=== PATIENT | male | born 1990 | race African-American/Black ===

== ENCOUNTER 2016-10-27 22:26 | Emergency (ER) | payer BC ==
[2016-10-27 22:53] VITALS: RESP 18
--- NOTE | 2016-10-27 23:57 | ED ---
General Adult HPI - General Chief complaint: Fall Stated complaint: Back Pain Time Seen by Provider: 10/27/16 23:13 Source: patient, RN notes reviewed, old records reviewed Mode of arrival: ambulatory Limitations: no limitations - History of Present Illness Initial comments: This is a 26-year-old male the ER for evaluation. Patient associated a esters trip and fall. Patient fell down 2 steps landing on tailbone landing on but, pain with sitting, no problems with walking. No other complaints or pain. Patient did not fall and hit his head. No chest penetrance breath or bowel pain. Follow. Mechanical - Related Data Home Medications Medication Instructions Recorded Confirmed Ibuprofen [Motrin] 800 mg PO Q6HR PRN 10/27/16 10/27/16 Allergies Allergy/AdvReac Type Severity Reaction Status Date / Time Penicillins Allergy Unknown Verified 10/27/16 23:08 Review of Systems ROS Statement: Those systems with pertinent positive or pertinent negative responses have been documented in the HPI. ROS Other: All systems not noted in ROS Statement are negative. Past Medical History Past Medical History: No Reported History History of Any Multi-Drug Resistant Organisms: MRSA Date of last positivie culture/infection: 2011 MDRO Source:: right arm Past Surgical History: No Surgical Hx Reported Past Psychological History: No Psychological Hx Reported Smoking Status: Former smoker Past Alcohol Use History: None Reported Past Drug Use History: None Reported General Exam Limitations: no limitations General appearance: alert, in no apparent distress Head exam: Present: atraumatic, normocephalic, normal inspection Eye exam: Present: normal appearance, PERRL, EOMI. Absent: scleral icterus, conjunctival injection, periorbital swelling ENT exam: Present: normal exam, mucous membranes moist Neck exam: Present: normal inspection. Absent: tenderness, meningismus, lymphadenopathy Respiratory exam: Present: normal lung sounds bilaterally. Absent: respiratory distress, wheezes, rales, rhonchi, stridor Cardiovascular Exam: Present: regular rate, normal rhythm, normal heart sounds. Absent: systolic murmur, diastolic murmur, rubs, gallop, clicks GI/Abdominal exam: Present: soft, normal bowel sounds. Absent: distended, tenderness, guarding, rebound, rigid Extremities exam: Present: normal inspection, full ROM, normal capillary refill. Absent: tenderness, pedal edema, joint swelling, calf tenderness Back exam: Present: normal inspection, other (Tenderness to coccyx area) Neurological exam: Present: alert, oriented X3, CN II-XII intact Psychiatric exam: Present: normal affect, normal mood Skin exam: Present: warm, dry, intact, normal color. Absent: rash Course Vital Signs 10/27/16 22:50 Temperature 98.2 F Pulse Rate 72 Respiratory 18 Rate Blood Pressure 129/79 O2 Sat by Pulse 96 Oximetry - Reevaluation(s) Reevaluation #1: 10/27/16 23:56 Patient is in no acute distress, able to ambulate no neurological issues Medical Decision Making - Medical Decision Making 26 LDR status post fall, patient with Dr. feliz coccygeal bruise, patient can be discharged home - Radiology Data Radiology results: report reviewed (X-ray pelvis and sacrum coccyx is negative for fracture), image reviewed Disposition Clinical Impression: Fall, Coccyx contusion Disposition: HOME SELF-CARE Condition: Good Instructions: Coccyx Injury (ED) Referrals: None,Stated [Primary Care Provider] - 1-2 days
[2016-10-27] MEDS ORDERED: Acetaminophen-Codeine 300-30mg TAB PO STA (23:58)
[2016-10-28 00:11] VITALS: BP 122/74; PULSE 76; TEMP 97
--- NOTE | 2016-10-28 00:45 | XR ---
EXAMINATION TYPE: XR pelvis AP view DATE OF EXAM: 10/27/2016 11:42 PM CLINICAL HISTORY: Right-sided tailbone pain fall from 2 feet onto butt. TECHNIQUE: A single AP view of the pelvis is obtained. COMPARISON: None. FINDINGS: A small bone density is noted in the lateral superior aspect of left acetabulum most likely represent ing small ossicle or old trauma changes. There is no acute fracture/dislocation evident in the pelvis. The hip and sacroiliac joints appear symmetric and unremarkable. The overlying soft tissue appears unremarkable. IMPRESSION: There is no acute fracture or dislocation in the pelvis.
--- NOTE | 2016-10-28 00:47 | XR ---
EXAMINATION TYPE: XR sacrum coccyx DATE OF EXAM: 10/27/2016 11:42 PM COMPARISON: Pelvis x-ray 10/27/2016 HISTORY: Right-sided tailbone pain history of fall from 2 feet onto the butt. TECHNIQUE: 3 radiographs of sacrum and coccyx were obtained. FINDINGS: No definite acute fracture or dislocation is noted in the sacrum and coccyx. Soft tissues a ppear unremarkable. IMPRESSION: No definite acute fracture or dislocation is noted in the sacrum and coccyx.
== END 2016-10-28 00:10 | disposition home or self-care (01) ==
LOC: EC 22:26
DX: S30.0XXA Contusion of lower back and pelvis, initial encounter (principal); W10.9XXA Fall (on) (from) unspecified stairs and steps, initial encounter; Z88.0 Allergy status to penicillin; Z87.891 Personal history of nicotine dependence
CPT/HCPCS: 72170; 72220; 99284

== ENCOUNTER 2016-11-16 09:27 | Emergency (ER) | payer BC ==
--- NOTE | 2016-11-16 10:58 | ED ---
General Adult HPI - General Chief complaint: Headache Stated complaint: headache Time Seen by Provider: 11/16/16 10:00 Source: patient, RN notes reviewed Mode of arrival: ambulatory Limitations: no limitations - History of Present Illness Initial comments: This is a 26-year-old male who states she's been having intermittent headaches for the last 7 months. Patient states in the occipital region of her head. Patient states they normally come and go but Aleve and Tylenol don't normally help. Patient states this started on Tuesday and hasn't gone away yet and he came in to be evaluated for the first time. Patient states he has no numbness weakness per patient denies any nausea vomiting. Patient states he may be a little sensitive to light but not that bad. Patient denies any recent fever or chills or cough. Patient denies any abdominal pain.. Patient denies any chest pain difficulty breathing shortness of breath per patient denies any recent injury or trauma. 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 - Related Data Home Medications Medication Instructions Recorded Confirmed Ibuprofen [Motrin] 800 mg PO Q6HR PRN 10/27/16 11/16/16 Allergies Allergy/AdvReac Type Severity Reaction Status Date / Time Penicillins Allergy Unknown Verified 11/16/16 09:49 Review of Systems ROS Statement: Those systems with pertinent positive or pertinent negative responses have been documented in the HPI. ROS Other: All systems not noted in ROS Statement are negative. Past Medical History Past Medical History: No Reported History History of Any Multi-Drug Resistant Organisms: MRSA Date of last positivie culture/infection: 2011 MDRO Source:: right arm Past Surgical History: No Surgical Hx Reported Past Psychological History: No Psychological Hx Reported Smoking Status: Former smoker Past Alcohol Use History: None Reported Past Drug Use History: None Reported General Exam - General Exam Comments Initial Comments: GENERAL: Patient is well-developed and well-nourished. Patient is nontoxic and well- hydrated and is in mild distress. ENT: Neck is soft and supple. No significant lymphadenopathy is noted. Oropharynx is clear. Moist mucous membranes. Neck has full range of motion without eliciting any pain. EYES: The sclera were anicteric and conjunctiva were pink and moist. Extraocular movements were intact and pupils were equal round and reactive to light. Eyelids were unremarkable. PULMONARY: Unlabored respirations. Good breath sounds bilaterally. No audible rales rhonchi or wheezing was noted. CARDIOVASCULAR: There is a regular rate and rhythm without any murmurs gallops or rubs. ABDOMEN: Soft and nontender with normal bowel sounds. No palpable organomegaly was noted. There is no palpable pulsatile mass. SKIN: Skin is clear with no lesions or rashes and otherwise unremarkable. NEUROLOGIC: Patient is alert and oriented x3. Cranial nerves II through XII are grossly intact. Motor and sensory are also intact. Normal speech, volume and content. Symmetrical smile. Cerebellar exam grossly intact. MUSCULOSKELETAL: Normal extremities with adequate strength and full range of motion. No lower extremity swelling or edema. No calf tenderness. LYMPHATICS: No significant lymphadenopathy is noted PSYCHIATRIC: Normal psychiatric evaluation. Normal interpersonal interactions appears functionally intact in deals appropriately with others. No signs of depression. No signs of anxiety. No delusions. No hallucinations. Limitations: no limitations Course Vital Signs 11/16/16 09:38 Temperature 97.5 F L Pulse Rate 68 Respiratory 18 Rate Blood Pressure 133/82 O2 Sat by Pulse 98 Oximetry Medical Decision Making - Medical Decision Making CT shows no acute abnormality. Disposition Clinical Impression: Acute headache Disposition: HOME SELF-CARE Condition: Good Instructions: Acute Headache (ED) Additional Instructions: Patient should take Excedrin when necessary for headaches. If he continues to have these headaches follow-up with his primary medical care doctor or neurology. Referrals: None,Stated [Primary Care Provider] - 1-2 days Time of Disposition: 11:43
--- NOTE | 2016-11-16 11:23 | CT ---
EXAMINATION TYPE: CT brain wo con DATE OF EXAM: 11/16/2016 11:19 AM COMPARISON: NONE HISTORY: 26-year-old male with Headache TECHNIQUE: Examination was done in axial plane without intravenous contrast. Coronal and sagittal reconstructio ns performed. CT DLP: 995.50 mGycm Automated exposure control for dose reduction was used. FINDINGS: There is no evidence of acute intracranial hemorrhage, acute ischemic changes, mass, mass-effect, or extra-axial fluid collection. There is no effacement of cerebral sulci or basal subarachnoid cister ns. There is no hydrocephalus. There is no midline shift. Foote-white matter distinction is preserv ed. Paranasal sinuses and mastoid air cells are well pneumatized. Orbits and globes are intact. IMPRESSION: No acute intracranial abnormality seen.
[2016-11-16 12:00] VITALS: BP 164/75; PULSE 60; RESP 16; TEMP 97.1
== END 2016-11-16 11:59 | disposition home or self-care (01) ==
LOC: EC 09:27
DX: R51 Headache (principal); Z87.891 Personal history of nicotine dependence; Z88.0 Allergy status to penicillin
CPT/HCPCS: 70450; 99284

== ENCOUNTER 2017-03-14 02:45 | Emergency (ER) | payer BC ==
[2017-03-14 02:50] VITALS: BP 149/72; PULSE 72; RESP 16; TEMP 97.9
--- NOTE | 2017-03-14 02:57 | ED ---
Upper Extremity HPI - General Chief Complaint: Extremity Injury, Upper Stated Complaint: Hand injury Time Seen by Provider: 03/14/17 02:50 Source: patient, RN notes reviewed Mode of arrival: ambulatory Limitations: no limitations - History of Present Illness Initial Comments: 26-year-old male presents emergency Department with chief complaint of left hand pain. Patient states that he actually closely in a car door. Patient complains of mid hand pain. Patient states is worse when he makes a fist. Patient denies any lacerations or open wounds. Patient states that he has no wrist pain and no pain in the digits. Patient is right-hand dominant. Patient offers no complaints. - Related Data Home Medications Medication Instructions Recorded Confirmed Ibuprofen [Motrin] 200 mg PO Q6HR PRN 10/27/16 03/14/17 Previous Rx's Medication Instructions Recorded Ibuprofen [Motrin] 600 mg PO Q8HR PRN #30 tab 03/14/17 Allergies Allergy/AdvReac Type Severity Reaction Status Date / Time Penicillins Allergy Unknown Verified 03/14/17 02:49 Review of Systems ROS Statement: Those systems with pertinent positive or pertinent negative responses have been documented in the HPI. ROS Other: All systems not noted in ROS Statement are negative. Past Medical History Past Medical History: No Reported History History of Any Multi-Drug Resistant Organisms: MRSA Date of last positivie culture/infection: 2011 MDRO Source:: right arm Past Surgical History: No Surgical Hx Reported Past Psychological History: No Psychological Hx Reported Smoking Status: Former smoker Past Alcohol Use History: None Reported Past Drug Use History: None Reported General Exam Limitations: no limitations General appearance: alert, in no apparent distress Respiratory exam: Present: normal lung sounds bilaterally. Absent: respiratory distress, wheezes, rales, rhonchi, stridor Cardiovascular Exam: Present: regular rate, normal rhythm, normal heart sounds. Absent: systolic murmur, diastolic murmur, rubs, gallop, clicks Extremities exam: Present: other (Left hand there is tenderness across of third through fifth metacarpal minimal swelling no lacerations no abrasions digits are nontender wrist nontender full range of motion neurovascular intact radial pulses equal bilaterally) Skin exam: Present: warm, dry Course Vital Signs 03/14/17 02:46 Temperature 97.9 F Pulse Rate 72 Respiratory 16 Rate Blood Pressure 149/72 O2 Sat by Pulse 97 Oximetry Medical Decision Making - Medical Decision Making 26-year-old male present emergency from for left hand injury. Patient has no acute fracture. There is a foreign body metallic noted which is old as is no open wounds. Patient does not have any recollection of this. Patient will be discharged with ibuprofen return parameters were discussed. Disposition Clinical Impression: Contusion of left hand Disposition: HOME SELF-CARE Condition: Stable Instructions: Contusion in Adults (ED) Additional Instructions: Please return to the Emergency Department if symptoms worsen or any other concerns. Prescriptions: Ibuprofen [Motrin] 600 mg PO Q8HR PRN #30 tab PRN Reason: Pain Referrals: None,Stated [Primary Care Provider] - 1-2 days Time of Disposition: 03:05
--- NOTE | 2017-03-14 03:34 | XR ---
EXAM: XR Left Hand Complete, 3 or More Views CLINICAL HISTORY: left medial hand pain from getting slammed in car door, no prior injuries per pt, no prior shielded TECHNIQUE: Frontal, lateral and oblique views of the left hand. COMPARISON: No relevant prior studies available. FINDINGS: Bones/joints: Unremarkable. No acute fracture. No dislocation. Soft tissues: Unremarkable. No radiopaque foreign body. IMPRESSION: No fracture
== END 2017-03-14 03:12 | disposition home or self-care (01) ==
LOC: EC 02:45
DX: S60.222A Contusion of left hand, initial encounter (principal); Z87.891 Personal history of nicotine dependence; Z88.0 Allergy status to penicillin; W23.0XXA Caught, crushed, jammed, or pinched between moving objects, initial encounter
CPT/HCPCS: 99283

== ENCOUNTER 2017-04-05 17:29 | Emergency (ER) | payer BC ==
--- NOTE | 2017-04-05 17:39 | ED ---
Upper Extremity HPI - General Stated Complaint: L wrist injury Time Seen by Provider: 04/05/17 17:31 Source: patient, RN notes reviewed Limitations: no limitations - History of Present Illness Initial Comments: 26-year-old male presents emergency Department with chief complaint of left wrist pain. Patient states he felt a trampoline a few days ago. Patient states that he has pain with range of motion. He takes my from for no relief. Denies any paresthesias. Denies any pain proximal to the wrist no hand pain. Patient no head injury no LOC. - Related Data Home Medications Medication Instructions Recorded Confirmed Ibuprofen [Motrin] 200 mg PO Q6HR PRN 10/27/16 03/14/17 Previous Rx's Medication Instructions Recorded Ibuprofen [Motrin] 600 mg PO Q8HR PRN #30 tab 03/14/17 Allergies Allergy/AdvReac Type Severity Reaction Status Date / Time Penicillins Allergy Unknown Verified 04/05/17 17:40 Review of Systems ROS Statement: Those systems with pertinent positive or pertinent negative responses have been documented in the HPI. ROS Other: All systems not noted in ROS Statement are negative. Past Medical History Past Medical History: No Reported History History of Any Multi-Drug Resistant Organisms: MRSA Date of last positivie culture/infection: 2011 MDRO Source:: right arm Past Surgical History: No Surgical Hx Reported Past Psychological History: No Psychological Hx Reported Smoking Status: Former smoker Past Alcohol Use History: None Reported Past Drug Use History: None Reported General Exam General appearance: alert, in no apparent distress Respiratory exam: Present: normal lung sounds bilaterally. Absent: respiratory distress, wheezes, rales, rhonchi, stridor Cardiovascular Exam: Present: regular rate, normal rhythm, normal heart sounds. Absent: systolic murmur, diastolic murmur, rubs, gallop, clicks Extremities exam: Present: other (Left wrist there is some tenderness along the distal radius ulna does not is deformity full range of motion neurovascular intact) Back exam: Present: full ROM. Absent: tenderness Skin exam: Present: warm, dry, intact, normal color. Absent: rash Course Vital Signs 04/05/17 17:40 Temperature 98.0 F Pulse Rate 77 Respiratory 18 Rate Blood Pressure 139/77 O2 Sat by Pulse 96 Oximetry Medical Decision Making - Medical Decision Making 26-year-old male presented for left wrist injury. There is no acute fracture per radiology reading. Patiently discharges time return parameters discussed. Patient has had a foreign body in his hand previously noted. Disposition Clinical Impression: Left wrist sprain Disposition: HOME SELF-CARE Condition: Stable Instructions: Wrist Injury (ED) Additional Instructions: Please return to the Emergency Department if symptoms worsen or any other concerns. Referrals: None,Stated [Primary Care Provider] - 1-2 days Time of Disposition: 18:07
[2017-04-05 17:43] VITALS: BP 139/77; PULSE 77; RESP 18; TEMP 98
--- NOTE | 2017-04-05 18:09 | XR ---
EXAMINATION TYPE: XR wrist complete LT DATE OF EXAM: 04/05/2017 COMPARISON: NONE HISTORY: Pain TECHNIQUE: 3 views FINDINGS: I see no fracture nor dislocation. Joint spaces are normal. There is a BB metal foreign bod y between the distal fourth and fifth metacarpals. IMPRESSION: No fracture. BB foreign body. No change compared to hand exam of 03/14/2017.
== END 2017-04-05 18:11 | disposition home or self-care (01) ==
LOC: EC 17:29
DX: S63.502A Unspecified sprain of left wrist, initial encounter (principal); Z87.891 Personal history of nicotine dependence; Z88.0 Allergy status to penicillin; X58.XXXA Exposure to other specified factors, initial encounter
CPT/HCPCS: 99283

== ENCOUNTER 2017-05-24 01:27 | Emergency (ER) | payer BC ==
[2017-05-24 01:40] VITALS: BP 134/63; PULSE 74; RESP 18; TEMP 97.8
--- NOTE | 2017-05-24 01:44 | ED ---
Upper Extremity HPI - General Chief Complaint: Extremity Injury, Upper Stated Complaint: elbow injury Time Seen by Provider: 05/24/17 01:34 Source: patient Mode of arrival: ambulatory Limitations: no limitations - History of Present Illness Initial Comments: 27 yo male presents for fall and left elbow pain.Patient denies any recent fever , chills, shortness of breath, chest pain, back pain, abdominal pain, nausea vomiting, numbness or tingling, dysuria or hematuria, constipation or diarrhea, headaches or visual changes, or any other current symptoms. MD Complaint: Injury to:: left, elbow Onset/Timin -: days(s) Other Injuries: none Handedness: right Place: home Severity scale (1-10): 3 Improves With: immobilization, rest Worsens With: movement of extremity Context: fall Associated Symptoms: denies other symptoms Treatments Prior to Arrival: NSAIDS - Related Data Home Medications Medication Instructions Recorded Confirmed Ibuprofen [Motrin] 200 mg PO Q6HR PRN 10/27/16 03/14/17 Previous Rx's Medication Instructions Recorded Ibuprofen [Motrin] 600 mg PO Q8HR PRN #30 tab 03/14/17 Allergies Allergy/AdvReac Type Severity Reaction Status Date / Time Penicillins Allergy Unknown Verified 05/24/17 01:40 Review of Systems ROS Statement: Those systems with pertinent positive or pertinent negative responses have been documented in the HPI. ROS Other: All systems not noted in ROS Statement are negative. Past Medical History Past Medical History: No Reported History History of Any Multi-Drug Resistant Organisms: MRSA Date of last positivie culture/infection: 2011 MDRO Source:: right arm Past Surgical History: No Surgical Hx Reported Past Psychological History: No Psychological Hx Reported Smoking Status: Former smoker Past Alcohol Use History: None Reported Past Drug Use History: None Reported General Exam Limitations: no limitations General appearance: alert, in no apparent distress ENT exam: Present: normal exam, mucous membranes moist Neck exam: Present: normal inspection. Absent: tenderness, meningismus, lymphadenopathy Respiratory exam: Present: normal lung sounds bilaterally. Absent: respiratory distress, wheezes, rales, rhonchi, stridor Cardiovascular Exam: Present: regular rate, normal rhythm, normal heart sounds. Absent: systolic murmur, diastolic murmur, rubs, gallop, clicks Left Shoulder Exam: Present: normal inspection, full ROM. Absent: tenderness, swelling Upper Arm exam: Present: normal inspection, full ROM. Absent: tenderness, swelling Elbow exam: Present: normal inspection, full ROM, tenderness (Olecranon process) . Absent: swelling, abrasion, laceration, ecchymosis, deformity, crepitus, erythema, effusion, pain w/ pronation/supination, tenderness over radial head Forearm Wrist exam: Present: normal inspection, full ROM. Absent: tenderness, swelling Hand Wrist exam: Present: normal inspection, full ROM. Absent: tenderness, swelling Neuro motor exam: Present: wrist extension intact, thumb opposition intact, thumb IP flexion intact, thumb adduction intact, fingers 2-5 abduction intact Neurosensory exam: Present: radial nerve intact, ulnar nerve intact, median nerve intact Vascular: Present: normal capillary refill. Absent: vascular compromise Neurological exam: Present: alert, oriented X3 Psychiatric exam: Present: normal affect, normal mood Skin exam: Present: warm, dry, intact, normal color. Absent: rash Course Vital Signs 05/24/17 01:34 Temperature 97.8 F Pulse Rate 74 Respiratory 18 Rate Blood Pressure 134/63 O2 Sat by Pulse 97 Oximetry Medical Decision Making - Medical Decision Making 27-year-old male presents with what appears be a left elbow contusion. We discussed ice we discussed Motrin Tylenol for pain. We discussed return parameters all patient's questions. He stated the [facility] is here and plan. At this time we will be discharged home. - Radiology Data Radiology results: report reviewed, image reviewed Disposition Clinical Impression: Left elbow contusion Disposition: HOME SELF-CARE Condition: Stable Instructions: Contusion in Adults (ED) Additional Instructions: Please use medication as discussed. Please follow up with family doctor if symptoms have not improved over the next two days. Please return to the emergency room if your symptoms increase or worsen or for any other concerns. Referrals: Sherita Snell MD [STAFF PHYSICIAN] - 1-2 days Time of Disposition: 02:15
--- NOTE | 2017-05-24 02:14 | XR ---
EXAM: XR Left Elbow Complete, 3 or More Views CLINICAL HISTORY: Reason: Pain TECHNIQUE: Frontal, lateral and oblique views of the left elbow. COMPARISON: No relevant prior studies available. FINDINGS: Bones/joints: Unremarkable. No acute fracture. No dislocation. No joint effusion. Soft tissues: Unremarkable. IMPRESSION: No acute osseous abnormality of the left elbow.
== END 2017-05-24 02:20 | disposition home or self-care (01) ==
LOC: EC 01:27
DX: S50.02XA Contusion of left elbow, initial encounter (principal); Z87.891 Personal history of nicotine dependence; Z88.0 Allergy status to penicillin; W19.XXXA Unspecified fall, initial encounter; Y92.009 Unspecified place in unspecified non-institutional (private) residence as the place of occurrence of the external cause
CPT/HCPCS: 99283

== ENCOUNTER 2017-08-01 00:23 | Emergency (ER) | payer BC ==
[2017-08-01 00:38] VITALS: RESP 18
--- NOTE | 2017-08-01 01:17 | XR ---
EXAMINATION TYPE: XR ankle complete RT DATE OF EXAM: 08/01/2017 COMPARISON: NONE HISTORY: Pain after basketball TECHNIQUE: 3 views FINDINGS: There is a small Achilles calcaneal spur. Ankle mortise is anatomic. I see no fracture nor dislocation. IMPRESSION: Calcaneal spurring. No fracture.
--- NOTE | 2017-08-01 01:18 | XR ---
EXAMINATION TYPE: XR foot complete RT DATE OF EXAM: 08/01/2017 COMPARISON: NONE HISTORY: Pain after basketball TECHNIQUE: 3 views FINDINGS: Metatarsals are intact. I see no fracture nor dislocation. There is a small Achilles calcan eal spur. There are no erosions. IMPRESSION: No acute abnormality of the right foot.
--- NOTE | 2017-08-01 01:23 | ED ---
Lower Extremity Injury HPI - General Chief Complaint: Extremity Injury, Lower Stated Complaint: Ankle Injury Time Seen by Provider: 08/01/17 00:36 Source: patient, RN notes reviewed, old records reviewed Mode of arrival: ambulatory Limitations: no limitations - History of Present Illness Initial Comments: 27-year-old male presents emergency Department chief complaint of right ankle pain and swelling. He reports that 2 days ago he twisted his ankle while jumping. Patient states he landed on his ankle and now he has some pain over the lateral aspect and the lateral aspect of the dorsum of his foot. He reports that he's had some decrease in the swelling but is still but easily decided to be seen. Patient has no numbness or tingling down the foot or toes.Patient denies any recent fever, chills, shortness of breath, chest pain, back pain, abdominal pain, nausea vomiting, numbness or tingling, dysuria or hematuria, constipation or diarrhea, headaches or visual changes, or any other current symptoms - Related Data Home Medications Medication Instructions Recorded Confirmed Ibuprofen [Motrin] 200 mg PO Q6HR PRN 10/27/16 03/14/17 Previous Rx's Medication Instructions Recorded Ibuprofen [Motrin] 600 mg PO Q8HR PRN #30 tab 03/14/17 Naproxen 500 mg PO BID #20 tablet 08/01/17 Allergies Allergy/AdvReac Type Severity Reaction Status Date / Time Penicillins Allergy Unknown Verified 08/01/17 00:36 Review of Systems ROS Statement: Those systems with pertinent positive or pertinent negative responses have been documented in the HPI. ROS Other: All systems not noted in ROS Statement are negative. Past Medical History Past Medical History: No Reported History History of Any Multi-Drug Resistant Organisms: MRSA Date of last positivie culture/infection: 2011 MDRO Source:: right arm Past Surgical History: No Surgical Hx Reported Past Psychological History: No Psychological Hx Reported Smoking Status: Former smoker Past Alcohol Use History: None Reported Past Drug Use History: None Reported General Exam - General Exam Comments Initial Comments: Well-appearing 27-year-old male. No distress. Limitations: no limitations General appearance: alert, in no apparent distress Head exam: Present: atraumatic, normocephalic, normal inspection Eye exam: Present: normal appearance, PERRL, EOMI. Absent: scleral icterus, conjunctival injection, periorbital swelling ENT exam: Present: normal exam, mucous membranes moist, TM's normal bilaterally Neck exam: Present: normal inspection. Absent: tenderness, meningismus, lymphadenopathy Respiratory exam: Present: normal lung sounds bilaterally. Absent: respiratory distress, wheezes, rales, rhonchi, stridor Cardiovascular Exam: Present: regular rate, normal rhythm, normal heart sounds. Absent: systolic murmur, diastolic murmur, rubs, gallop, clicks GI/Abdominal exam: Present: soft, normal bowel sounds. Absent: distended, tenderness, guarding, rebound, rigid Extremities exam: Present: normal inspection, full ROM, normal capillary refill. Absent: tenderness, pedal edema, joint swelling, calf tenderness Right Knee exam: Present: normal inspection, full ROM Lower Leg exam: Present: normal inspection, full ROM Ankle exam: Present: normal inspection, full ROM, tenderness (lateral malleoulus tenderness. ) Foot/Toe exam: Present: normal inspection, full ROM Neurovascular tendon exam: Present: no vascular compromise Back exam: Present: normal inspection Neurological exam: Present: alert, oriented X3, CN II-XII intact Psychiatric exam: Present: normal affect, normal mood Skin exam: Present: warm, dry, intact, normal color. Absent: rash Course Vital Signs 08/01/17 08/01/17 00:36 02:07 Temperature 97.3 F L 98.1 F Pulse Rate 60 65 Respiratory 18 18 Rate Blood Pressure 138/88 149/96 O2 Sat by Pulse 97 98 Oximetry Procedures - Orthopedic Splinting/Casting Injury #1 Side: right Lower Extremity Injury Location: ankle Lower Extremity Immobilizer: Abdoul wrap Additional Comments: Patient is neurovascularly intact. Medical Decision Making - Medical Decision Making 17-year-old male chief complaint of right ankle pain after jumping and landing on his ankle in twisting it 2 days ago. He is able to bear weight on it. There is some tenderness over the lateral aspect of the medial malleolus. Patient has full range of motion of the toes and ankle. It is time for and x- rays were obtained and are negative for any acute process. Patient was given an Abdoul wrap splint. Discussed using the compression of the Abdoul wrap as well as resting and icing and elevating the foot. Patient will be discharged with a prescription for anti-inflammatory medicine and advised to follow-up with orthopedic if symptoms continue to persist. Patient be diagnosed with a right ankle sprain. - Radiology Data Radiology results: report reviewed Ankle and foot x-ray are negative for any acute process. Disposition Clinical Impression: Right ankle sprain Disposition: HOME SELF-CARE Condition: Good Instructions: Ankle Sprain (ED), Foot Sprain (ED) Additional Instructions: , Ice, elevate extremity. Wear the Abdoul wrap. Follow up with orthopedic if symptoms continue persist. Patient advised to follow-up with primary care provider. Return to emergency department if any alarming signs or symptoms occur. Prescriptions: Naproxen 500 mg PO BID #20 tablet Referrals: None,Stated [Primary Care Provider] - 1-2 days Roque Mar MD [STAFF PHYSICIAN] - 1-2 days Time of Disposition: 01:20
[2017-08-01 02:08] VITALS: BP 149/96; PULSE 65; TEMP 98.1
== END 2017-08-01 02:08 | disposition home or self-care (01) ==
LOC: EC 00:23
DX: S93.401A Sprain of unspecified ligament of right ankle, initial encounter (principal); Z86.14 Personal history of Methicillin resistant Staphylococcus aureus infection; Z87.891 Personal history of nicotine dependence; Z88.0 Allergy status to penicillin; X50.1XXA Overexertion from prolonged static or awkward postures, initial encounter; Y93.39 Activity, other involving climbing, rappelling and jumping off
CPT/HCPCS: 99284

== ENCOUNTER 2017-11-01 03:12 | Emergency (ER) | payer BC ==
[2017-11-01 03:31] VITALS: BP 135/86; PULSE 74; RESP 16; TEMP 98.8
[2017-11-01] MEDS ORDERED: IBUPROFEN 400 MG TAB PO STA (03:57)
--- NOTE | 2017-11-01 03:58 | ED ---
Fall HPI - General Chief Complaint: Fall Stated Complaint: fall Time Seen by Provider: 11/01/17 03:46 Source: patient Mode of arrival: ambulatory - History of Present Illness Initial Comments: This patient is a 27-year-old man who presents to be evaluated after he had a head injury. The patient states that this morning between 8 and 9 AM he fell and hit the left side of the back of his head against car bumper. The patient did not have loss of consciousness. He did not experience any bleeding. He did not have any neurologic symptoms. He has continued to have some headache throughout the day, resulting in him taking [id number] Tylenol around 2 hours ago. He states this did make it a bit better area the patient states that when he described was going onto his mother she recommended that he go to the emergency department to see if he had a concussion the patient states he has not had confusion, change in hearing, vision, speech or swallowing. He has not had any weakness or numbness of the extremities. He is not having difficulty with walking or dizziness. He has had some nausea but no vomiting. Patient denies other injuries, including no neck or back, chest or abdomen pain. MD Complaint: fall Onset/Timin -: hour(s) Fall From: standing Fall Witnessed: no Place Fall Occurred: street Loss of Consciousness: none Prolonged Down Time?: no Symptoms Prior to Fall: none Location: head Severity: mild Quality: dull, aching Context: tripped/slipped (On ice) Associated Symptoms: headache - Related Data Home Medications Medication Instructions Recorded Confirmed Ibuprofen [Motrin] 200 mg PO Q6HR PRN 10/27/16 08/22/17 Previous Rx's Medication Instructions Recorded Ibuprofen [Motrin] 600 mg PO Q8HR PRN #30 tab 03/14/17 Naproxen 500 mg PO BID #20 tablet 08/01/17 Allergies Allergy/AdvReac Type Severity Reaction Status Date / Time Penicillins Allergy Unknown Verified 11/01/17 03:31 Review of Systems ROS Statement: Those systems with pertinent positive or pertinent negative responses have been documented in the HPI. ROS Other: All systems not noted in ROS Statement are negative. Constitutional: Denies: fever, chills, weakness Eyes: Denies: eye pain, vision change ENT: Denies: ear pain, hearing loss, epistaxis Respiratory: Denies: dyspnea Cardiovascular: Denies: chest pain, syncope Gastrointestinal: Denies: abdominal pain, vomiting Genitourinary: Denies: dysuria Musculoskeletal: Denies: back pain Neurological: Reports: headache. Denies: weakness, numbness, paresthesias Past Medical History Past Medical History: No Reported History History of Any Multi-Drug Resistant Organisms: MRSA Date of last positivie culture/infection: 2011 MDRO Source:: right arm Past Surgical History: No Surgical Hx Reported Past Psychological History: No Psychological Hx Reported Smoking Status: Former smoker Past Alcohol Use History: None Reported Past Drug Use History: None Reported General Exam Limitations: no limitations General appearance: alert, in no apparent distress Head exam: Present: normocephalic, other (There is a small contusion to the left of the occiput. No bony tenderness or deformity.) Eye exam: Present: normal appearance, PERRL, EOMI. Absent: scleral icterus, conjunctival injection, nystagmus ENT exam: Present: normal oropharynx, mucous membranes moist, TM's normal bilaterally, normal external ear exam Neck exam: Present: normal inspection, full ROM. Absent: tenderness Extremities exam: Present: normal inspection, full ROM, other (Right forearm and wrist). Absent: tenderness Back exam: Absent: CVA tenderness (R), CVA tenderness (L), vertebral tenderness Neurological exam: Present: alert, oriented X3, CN II-XII intact, normal gait. Absent: motor sensory deficit Skin exam: Present: warm, dry, intact, normal color. Absent: rash Course Vital Signs 11/01/17 03:26 Temperature 98.8 F Pulse Rate 74 Respiratory 16 Rate Blood Pressure 135/86 O2 Sat by Pulse 99 Oximetry Medical Decision Making - Medical Decision Making The patient is 19-year-old man who presents with mild headache and some some intermittent nausea since head injury this morning. He has normal neurologic exam and no indication of fracture on the exam. He does have a fiance who he lives with and will be able to monitor for him for any change in his status. Using shared decision making, we have decided that hold off on a CT for now and should any change in his status develop, should he experience any worsening at all, should his symptoms not resolve, that may change things. He is going to follow with the neurologist if he is not back to normal in the morning. he will return here if there is any worsening. Disposition Clinical Impression: Fall, Closed head injury Disposition: HOME SELF-CARE Condition: Good Instructions: Head Injury (ED) Referrals: Max Murphy MD [Primary Care Provider] - 1-2 days Barby Dorman MD [STAFF PHYSICIAN] - 1-2 days
== END 2017-11-01 04:10 | disposition home or self-care (01) ==
LOC: EC 03:12
DX: S00.03XA Contusion of scalp, initial encounter (principal); Z87.891 Personal history of nicotine dependence; Z88.0 Allergy status to penicillin; Z86.14 Personal history of Methicillin resistant Staphylococcus aureus infection; W00.0XXA Fall on same level due to ice and snow, initial encounter; Y92.410 Unspecified street and highway as the place of occurrence of the external cause
CPT/HCPCS: 99283

== ENCOUNTER 2017-11-03 17:24 | Emergency (ER) | payer BC ==
[2017-11-03 17:28] VITALS: BP 134/84; PULSE 73; RESP 16; TEMP 97.4
--- NOTE | 2017-11-03 17:37 | ED ---
General Adult HPI - General Chief complaint: Head Injury Stated complaint: HEADACHE X 3 DAYS, VOMITING Time Seen by Provider: 11/03/17 17:30 Source: patient, RN notes reviewed Mode of arrival: ambulatory Limitations: no limitations - History of Present Illness Initial comments: 27-year-old male presents to the emergency department with a chief complaint of head injury. Patient states he fell about to 3 days ago and hit the side of his head on the car. He was seen here everything appeared to be okay however he was told to return if things got worse. She's now having worsening headache and some nausea so he was concerned. He states that he has no significant CT playing he's otherwise been acting normally but he was concerned due to the continued headache so he thought that he should be seen. Patient states is been no fever chills. He denies any cough cold. Patient denies any recent fever , chills, shortness of breath, chest pain, back pain, abdominal pain, numbness or tingling, dysuria or hematuria, constipation or diarrhea, visual changes, or any other current symptoms. - Related Data Home Medications Medication Instructions Recorded Confirmed Ibuprofen [Motrin] 200 mg PO Q6HR PRN 10/27/16 08/22/17 Previous Rx's Medication Instructions Recorded Ibuprofen [Motrin] 600 mg PO Q8HR PRN #30 tab 03/14/17 Naproxen 500 mg PO BID #20 tablet 08/01/17 Allergies Allergy/AdvReac Type Severity Reaction Status Date / Time Penicillins Allergy Unknown Verified 11/03/17 17:28 Review of Systems ROS Statement: Those systems with pertinent positive or pertinent negative responses have been documented in the HPI. ROS Other: All systems not noted in ROS Statement are negative. Past Medical History Past Medical History: No Reported History History of Any Multi-Drug Resistant Organisms: MRSA Date of last positivie culture/infection: 2011 MDRO Source:: right arm Past Surgical History: No Surgical Hx Reported Past Psychological History: No Psychological Hx Reported Smoking Status: Former smoker Past Alcohol Use History: None Reported Past Drug Use History: None Reported General Exam - General Exam Comments Initial Comments: General: The patient is awake and alert, in no distress, and does not appear acutely ill. Eye: Pupils are equal, round and reactive to light, extra-ocular movements are intact; there is normal conjunctiva bilaterally. No signs of icterus. Ears, nose, mouth and throat: There are moist mucous membranes and no oral lesions. Neck: The neck is supple, there is no tenderness. Cardiovascular: There is a regular rate and rhythm. No murmur, rub or gallop is appreciated. Respiratory: Lungs are clear to auscultation, respirations are non-labored, breath sounds are equal. No wheezes, stridor, rales, or rhonchi. Gastrointestinal: Soft, non-distended, non-tender abdomen without masses or organomegaly noted. There is no rebound or guarding present. No CVA tenderness. Bowel sounds are unremarkable. Back: There is no tenderness to palpation in the midline. There is no obvious deformity. No rashes noted. Musculoskeletal: Normal ROM, no tenderness, There is no pedal edema. There is no calf tenderness or swelling. Sensation intact. Pulses equal bilaterally 2+. Neurological: CN II-XII intact, There are no obvious motor or sensory deficits. Coordination appears grossly intact. Speech is normal. Skin: Skin is warm and dry and no rashes or lesions are noted. Psychiatric: Cooperative, appropriate mood & affect, normal judgment. Limitations: no limitations Course Vital Signs 11/03/17 17:25 Temperature 97.4 F L Pulse Rate 73 Respiratory 16 Rate Blood Pressure 134/84 O2 Sat by Pulse 98 Oximetry Medical Decision Making - Medical Decision Making 27-year-old male presents to the emergency department with a chief complaint of continued headache and episodes of nausea vomiting following a head injury. At this time patient states we will get a CAT scan patient had further evaluate. This time CAT scan is reviewed and negative. We discussed patient most likely is having postconcussive like symptoms. We discussed follow-up return parameters all questions. He stated that he understood and he is given this plan. All questions have been answered. He will be discharged. - Radiology Data Radiology results: report reviewed, image reviewed Disposition Clinical Impression: Concussion without loss of consciousness Disposition: HOME SELF-CARE Condition: Stable Instructions: Concussion (ED) Additional Instructions: Please use medication as discussed. Please follow up with family doctor if symptoms have not improved over the next two days. Please return to the emergency room if your symptoms increase or worsen or for any other concerns. Referrals: Max Murphy MD [Primary Care Provider] - 1-2 days Time of Disposition: 18:04
--- NOTE | 2017-11-03 18:01 | CT ---
EXAMINATION TYPE: CT brain wo con DATE OF EXAM: 11/03/2017 COMPARISON: Previous study dated 11/16/2016 HISTORY: Pain following trauma CT DLP: 1036.00 mGycm Automated exposure control for dose reduction was used. FINDINGS: Central structures are midline. There is no evidence of hydrocephalus. No acute focal lesion, mass ef fect or midline shift is seen. I do not see evidence of intracranial blood. The orbits are unremarkable. Visualized portions of the paranasal sinuses and mastoids are clear. No depressed skull fracture is s een. IMPRESSION: NORMAL CT SCAN OF THE BRAIN.
== END 2017-11-03 18:40 | disposition home or self-care (01) ==
LOC: EC 17:24
DX: S06.0X0A Concussion without loss of consciousness, initial encounter (principal); Z86.14 Personal history of Methicillin resistant Staphylococcus aureus infection; Z87.891 Personal history of nicotine dependence; Z88.0 Allergy status to penicillin; W01.198A Fall on same level from slipping, tripping and stumbling with subsequent striking against other object, initial encounter
CPT/HCPCS: 70450; 99283

== ENCOUNTER 2018-05-01 04:57 | Emergency (ER) | payer BC ==
[2018-05-01 05:08] VITALS: BP 117/70; PULSE 79; RESP 18; TEMP 98.5
--- NOTE | 2018-05-01 05:38 | XR ---
EXAMINATION TYPE: XR hand complete RT DATE OF EXAM: 05/01/2018 COMPARISON: NONE HISTORY: Pain in the right hand TECHNIQUE: 3 views FINDINGS: There is a nondisplaced fracture of the cortex on the posterior head of the third metacarpa l. There is slight depression of the cortex. There is a small 1 mm bony density at the posterior thir d MP joint consistent with a tiny chip fracture. There is no dislocation. Joint spaces overall are fa irly normal. IMPRESSION: Mildly depressed cortical surface fracture of the posterior head of the third metacarpal. Small 1 mm chip fracture.
--- NOTE | 2018-05-01 05:52 | ED ---
General Adult HPI - General Chief complaint: Extremity Injury, Upper Stated complaint: Hand injury/swelling Time Seen by Provider: 05/01/18 05:05 Source: patient, RN notes reviewed, old records reviewed Mode of arrival: ambulatory Limitations: no limitations - History of Present Illness Initial comments: This is a 19-year-old male the ER with complaints of right hand pain. Patient denies punching wall, patient states he had hurt him to catch a ball. He moves his group and swelling. No modifying factors for pain. No other injuries noted - Related Data Home Medications Medication Instructions Recorded Confirmed Ibuprofen [Motrin] 200 mg PO Q6HR PRN 10/27/16 08/22/17 Previous Rx's Medication Instructions Recorded Ibuprofen [Motrin] 600 mg PO Q8HR PRN #30 tab 03/14/17 Naproxen 500 mg PO BID #20 tablet 08/01/17 Allergies Allergy/AdvReac Type Severity Reaction Status Date / Time Penicillins Allergy Unknown Verified 05/01/18 05:08 Review of Systems ROS Statement: Those systems with pertinent positive or pertinent negative responses have been documented in the HPI. ROS Other: All systems not noted in ROS Statement are negative. Past Medical History Past Medical History: No Reported History History of Any Multi-Drug Resistant Organisms: MRSA Date of last positivie culture/infection: 2011 MDRO Source:: right arm Past Surgical History: No Surgical Hx Reported Past Psychological History: No Psychological Hx Reported Smoking Status: Former smoker Past Alcohol Use History: None Reported Past Drug Use History: None Reported General Exam - General Exam Comments Initial Comments: Right hand tenderness and swelling medial finger Limitations: no limitations General appearance: alert, in no apparent distress Head exam: Present: atraumatic, normocephalic, normal inspection Eye exam: Present: normal appearance, PERRL, EOMI. Absent: scleral icterus, conjunctival injection, periorbital swelling ENT exam: Present: normal exam, mucous membranes moist Neck exam: Present: normal inspection. Absent: tenderness, meningismus, lymphadenopathy Respiratory exam: Present: normal lung sounds bilaterally. Absent: respiratory distress, wheezes, rales, rhonchi, stridor Cardiovascular Exam: Present: regular rate, normal rhythm, normal heart sounds. Absent: systolic murmur, diastolic murmur, rubs, gallop, clicks GI/Abdominal exam: Present: soft, normal bowel sounds. Absent: distended, tenderness, guarding, rebound, rigid Extremities exam: Present: normal inspection, full ROM, normal capillary refill. Absent: tenderness, pedal edema, joint swelling, calf tenderness Back exam: Present: normal inspection Neurological exam: Present: alert, oriented X3, CN II-XII intact Psychiatric exam: Present: normal affect, normal mood Skin exam: Present: warm, dry, intact, normal color. Absent: rash Course Vital Signs 05/01/18 05:06 Temperature 98.5 F Pulse Rate 79 Respiratory 18 Rate Blood Pressure 117/70 O2 Sat by Pulse 97 Oximetry Medical Decision Making - Medical Decision Making 27 the ER for evaluation injury, patient has had pain, third metacarpal fracture , patient placed in splints and can be discharged home - Radiology Data Radiology results: report reviewed (X-ray shows third metacarpal fracture), image reviewed Disposition Clinical Impression: Fracture of middle phalanx of finger of right hand Disposition: HOME SELF-CARE Condition: Good Instructions: Finger Fracture (ED) Is patient prescribed a controlled substance at d/c from ED?: No Referrals: Max Murphy MD [Primary Care Provider] - 1-2 days
== END 2018-05-01 06:09 | disposition home or self-care (01) ==
LOC: EC 04:57
DX: S62.622A Displaced fracture of middle phalanx of right middle finger, initial encounter for closed fracture (principal); Z87.891 Personal history of nicotine dependence; Z88.0 Allergy status to penicillin; Z86.14 Personal history of Methicillin resistant Staphylococcus aureus infection; X50.1XXA Overexertion from prolonged static or awkward postures, initial encounter; Y93.67 Activity, basketball
CPT/HCPCS: 99284

== ENCOUNTER → 2018-10-27 | Outpatient (CLI) | payer BC ==
--- NOTE | 2018-10-27 17:31 | XR ---
EXAMINATION TYPE: XR lumbosacral spine min 4V DATE OF EXAM: 10/27/2018 COMPARISON: 08/22/2017 HISTORY: Back pain TECHNIQUE: 5 views FINDINGS: Lumbar vertebra have fairly normal spacing and alignment. Posterior elements are intact. Sa croiliac joints appear normal. IMPRESSION: Negative lumbar spine exam. No change.
--- NOTE | 2018-10-29 16:19 | XR ---
EXAMINATION TYPE: XR cervical spine 3 views limited, XR thoracic spine 3 views DATE OF EXAM: 10/27/2018 COMPARISON: NONE HISTORY: 28-year-old male back pain since fall FINDINGS: Cervical spine: No predental space widening or prevertebral soft tissue swelling. Mild anterior endplate spondylosis is present at C4-C5. Alignment is maintained. No significant degenerative change seen. Normal odontoi d view. Thoracic spine: 12 rib-bearing thoracic vertebral bodies. All pedicles are visualized. Straightening of the normal th oracic kyphosis but with preserved alignment and vertebral body heights. IMPRESSION: 1. Cervical spine: Mild anterior endplate spondylosis at C4-C5. No prevertebral soft tissue swelling or malalignment. 2. Thoracic spine: Straightening of the normal kyphosis could be positional or due to muscle spasm. N o vertebral compression collapse or malalignment.
== END | disposition home or self-care (01) ==
LOC: RADXRMAIN 16:17
PROVIDERS: ATTEND Internal Medicine
DX: M47.812 Spondylosis without myelopathy or radiculopathy, cervical region (principal)
CPT/HCPCS: 72040; 72070; 72110

== ENCOUNTER 2019-05-08 23:59 | Emergency (ER) | payer BC ==
[2019-05-09 00:05] VITALS: RESP 16
[2019-05-09] MEDS ORDERED: ACETAMINOPHEN TAB 500 MG TAB PO STA (00:16)
--- NOTE | 2019-05-09 00:18 | ED ---
General Adult HPI - General Chief complaint: Extremity Injury, Lower Stated complaint: Ankle Pain Time Seen by Provider: 05/09/19 00:12 Source: patient Mode of arrival: ambulatory Limitations: no limitations - History of Present Illness Initial comments: Patient is a 28-year-old male presents with a chief complaint of right ankle pain after rolling his ankle playing basketball 2 days ago. The patient states that he was trying to get a rebound when he came down to the ground he landed on an inverted ankle. He states his pain is a 2 out of 10. States it is pain is aggravated with walking and bearing weight. Alleviated with rest, and Motrin. Patient has no other injuries or complaints today. - Related Data Home Medications Medication Instructions Recorded Confirmed Ibuprofen [Motrin] 200 mg PO Q6HR PRN 10/27/16 08/22/17 Previous Rx's Medication Instructions Recorded Ibuprofen [Motrin] 600 mg PO Q8HR PRN #30 tab 03/14/17 Naproxen 500 mg PO BID #20 tablet 08/01/17 Desloratadine/Pseudoephedrine 1 each PO BID #14 tbmp.12hr 07/04/18 [Clarinex-D 12 Hour Tablet] Levofloxacin [Levaquin] 750 mg PO DAILY #7 tab 07/04/18 Acetaminophen [Tylenol Extra 1,000 mg PO QID #20 tablet 05/09/19 Strength] Ibuprofen [Motrin] 800 mg PO TID #20 tab 05/09/19 Allergies Allergy/AdvReac Type Severity Reaction Status Date / Time Penicillins Allergy Unknown Verified 05/09/19 00:05 Review of Systems ROS Statement: Those systems with pertinent positive or pertinent negative responses have been documented in the HPI. ROS Other: All systems not noted in ROS Statement are negative. Past Medical History Past Medical History: No Reported History History of Any Multi-Drug Resistant Organisms: MRSA Date of last positivie culture/infection: 2011 MDRO Source:: right arm Past Surgical History: No Surgical Hx Reported Past Psychological History: No Psychological Hx Reported Smoking Status: Former smoker Past Alcohol Use History: None Reported Past Drug Use History: None Reported General Exam Limitations: no limitations General appearance: alert, in no apparent distress Head exam: Present: atraumatic, normocephalic Eye exam: Present: normal appearance ENT exam: Present: normal exam Neck exam: Present: normal inspection Respiratory exam: Present: normal lung sounds bilaterally. Absent: respiratory distress, wheezes Cardiovascular Exam: Present: regular rate, normal rhythm GI/Abdominal exam: Present: soft. Absent: distended, tenderness Rectal exam: Present: deferred Extremities exam: Present: normal inspection Back exam: Present: normal inspection Neurological exam: Present: alert, oriented X3 Psychiatric exam: Present: normal affect, normal mood Skin exam: Present: warm, dry, intact Course Vital Signs 05/09/19 00:03 Temperature 98.4 F Pulse Rate 84 Respiratory 16 Rate Blood Pressure 123/77 O2 Sat by Pulse 98 Oximetry Medical Decision Making - Medical Decision Making Patient presents with a chief complaint of ankle pain. On initial evaluation, vitals are stable, patient is no acute distress. Patient likely suffering from an ankle sprain. We'll rule out fracture with an x-ray. Patient given Tylenol for pain. 12:42 AM X-rays did not show any evidence of acute fracture. At this time, patient st able for discharge. He was instructed to use Motrin and Tylenol for pain control, keep ice as needed, elevate when at rest. Follow-up with primary care wanted to days, return to ED if symptoms worsen or change. Disposition Clinical Impression: Ankle sprain and strain Disposition: HOME SELF-CARE Condition: Good Instructions (If sedation given, give patient instructions): Ankle Sprain (ED) Prescriptions: Ibuprofen [Motrin] 800 mg PO TID #20 tab Acetaminophen [Tylenol Extra Strength] 1,000 mg PO QID #20 tablet Is patient prescribed a controlled substance at d/c from ED?: No Referrals: Max Murphy MD [Primary Care Provider] - 1-2 days
--- NOTE | 2019-05-09 00:37 | XR ---
EXAM: XR Right Ankle Complete, 3 or More Views CLINICAL HISTORY: ITS.REASON XR Reason: Pain TECHNIQUE: Frontal, lateral and oblique views of the right ankle. COMPARISON: No relevant prior studies available. FINDINGS: Bones/joints: Unremarkable. No acute fracture. No dislocation. Soft tissues: Unremarkable. IMPRESSION: Normal right ankle x-rays.
[2019-05-09 01:04] VITALS: BP 116/78; PULSE 80; TEMP 98
== END 2019-05-09 01:04 | disposition home or self-care (01) ==
LOC: EC 23:59
DX: S93.401A Sprain of unspecified ligament of right ankle, initial encounter (principal); S96.911A Strain of unspecified muscle and tendon at ankle and foot level, right foot, initial encounter; Z87.891 Personal history of nicotine dependence; Z86.14 Personal history of Methicillin resistant Staphylococcus aureus infection; Z88.0 Allergy status to penicillin; X50.1XXA Overexertion from prolonged static or awkward postures, initial encounter; Y93.67 Activity, basketball
CPT/HCPCS: 99283

== ENCOUNTER 2019-06-25 01:43 | Emergency (ER) | payer BC ==
[2019-06-25 02:03] VITALS: RESP 18; TEMP 98
[2019-06-25] MEDS ORDERED: SODIUM CHLORIDE 0.9% 500 ML 500 ML IV STA (02:55)
--- NOTE | 2019-06-25 02:55 | ED ---
General Adult HPI - General Chief complaint: Headache Stated complaint: Headache Time Seen by Provider: 06/25/19 02:31 Source: patient, RN notes reviewed, old records reviewed Mode of arrival: ambulatory Limitations: no limitations - History of Present Illness Initial comments: 29-year-old male patient, no pertinent past history presents ED chief complaint of headache. Patient force that he was roller skating on Tuesday his children, patient reports that he fell down, hitting the frontal aspect of his head. Patient denies any loss of consciousness, denies any nausea vomiting diarrhea or changes in vision. Patient reports that since his fall however he has had a persistent frontal lobe headache. Patient states that he has tried [id number] Tylenol and Motrin which has not resolved his headache. Patient presents to ED for evaluation denies any other complaints. Systemic: Pt denies fatigue, fever/chills, rash. Pt denies weakness, night s weats, weight loss. Neuro: Pt denies headache, visual disturbances, syncope or pre-syncope. HEENT: Pt denies ocular discharge or irritation, otalgia, rhinorrhea, pharyngitis or notable lymphadenopathy. Cardiopulmonary: Pt denies chest pain, SOB, heart palpitations, dyspnea on exertion. Abdominal/GI: Pt denies abdominal pain, n/v/d. : Pt denies dysuria, burning w/ urination, frequency/urgency. Denies new onset urinary or bowel incontinence. MSK: Pt denies myalgia, loss of strength or function in extremities. Neuro: Pt denies new onset weakness, paresthesias. - Related Data Home Medications Medication Instructions Recorded Confirmed Ibuprofen [Motrin] 200 mg PO Q6HR PRN 10/27/16 08/22/17 Previous Rx's Medication Instructions Recorded Ibuprofen [Motrin] 600 mg PO Q8HR PRN #30 tab 03/14/17 Naproxen 500 mg PO BID #20 tablet 08/01/17 Desloratadine/Pseudoephedrine 1 each PO BID #14 tbmp.12hr 07/04/18 [Clarinex-D 12 Hour Tablet] Levofloxacin [Levaquin] 750 mg PO DAILY #7 tab 07/04/18 Acetaminophen [Tylenol Extra 1,000 mg PO QID #20 tablet 05/09/19 Strength] Ibuprofen [Motrin] 800 mg PO TID #20 tab 05/09/19 Allergies Allergy/AdvReac Type Severity Reaction Status Date / Time Penicillins Allergy Unknown Verified 06/25/19 02:04 Review of Systems ROS Statement: Those systems with pertinent positive or pertinent negative responses have been documented in the HPI. ROS Other: All systems not noted in ROS Statement are negative. Past Medical History Past Medical History: No Reported History History of Any Multi-Drug Resistant Organisms: MRSA Date of last positivie culture/infection: 2011 MDRO Source:: right arm Past Surgical History: No Surgical Hx Reported Past Psychological History: No Psychological Hx Reported Smoking Status: Former smoker Past Alcohol Use History: None Reported Past Drug Use History: None Reported General Exam - General Exam Comments Initial Comments: Constitutional: NAD, AOX3, Pt has pleasant affect. HEENT: NC/AT, trachea midline, neck supple, no lymphadenopathy. Posterior pharynx non erythematous, without exudates. External ears appear normal, without discharge. Mucous membranes moist. Eyes PERRLA, EOM intact. There is no scleral icterus. No pallor noted. Cardiopulmonary: RRR, no murmurs, rubs or gallops, no JVD noted. Lungs CTAB in anterior and posterior bang. No peripheral edema. Abdominal exam: Abdomen soft and non-distended. Abdomen non-tender to palpation in all 4 quadrants. Bowel sounds active in LLQ. No hepatosplenomegaly. No ecchymosis Neuro: CN II-XII intact. No nuchal rigidity. No raccon eyes, no quintero sign, no hemotympanum. No cervical spinal tenderness. MSK: No posterior calf tenderness bilaterally, homans sign negative bilaterally. Posterior tibialis and radial pulse +2 bilaterally. Sensation intact in upper and lower extremities. Full active ROM in upper and lower extremities, 5/5 stregnth. Limitations: no limitations Course Vital Signs 06/25/19 02:01 Temperature 98 F Pulse Rate 68 Respiratory 18 Rate Blood Pressure 144/97 O2 Sat by Pulse 99 Oximetry Medical Decision Making - Medical Decision Making 29-year-old male patient, no pertinent past history presents ED chief complaint of headache. Patient force that he was roller skating on Tuesday his children, patient reports that he fell down, hitting the frontal aspect of his head. Patient denies any loss of consciousness, denies any nausea vomiting diarrhea or changes in vision. Patient reports that since his fall however he has had a persistent frontal lobe headache. Patient states that he has tried [id number] Tylenol and Motrin which has not resolved his headache. Patient presents to ED for evaluation denies any other complaints. Patient vital signs stable, afebrile. Physical exam displayed normal neurologic exam. No focal deficit. CT brain C-spine did not display acute process. Patient requests discharge prior to medication or headaches. Patient discharge, follow up with primary care provider tomorrow. Case discussed with Dr. Ryan. Disposition Clinical Impression: Fall, Headache Disposition: HOME SELF-CARE Condition: Stable Instructions (If sedation given, give patient instructions): Acute Headache (ED ) Additional Instructions: Patient to adhere to previously discussed treatment plan and will take medication(s) as directed. Patient to follow up with PCP in 1-2 days. Patient to return to ED if symptoms do not improve. Follow-up with primary care provider tomorrow, return here if condition worsens. Is patient prescribed a controlled substance at d/c from ED?: No Referrals: Max Murphy MD [Primary Care Provider] - 1-2 days
--- NOTE | 2019-06-25 03:19 | CT ---
EXAM: CT Head Without Intravenous Contrast CLINICAL HISTORY: ITS.REASON CT Reason: Pain TECHNIQUE: Axial computed tomography images of the head/brain without intravenous contrast. CTDI is 45 mGy and DLP is 1005 mGy-cm. This CT exam was performed using one or more of the following dose reduction techniques: automated exposure control, adjustment of the mA and/or kV according to patient size, and/or use of iterative reconstruction technique. COMPARISON: No relevant prior studies available. FINDINGS: Brain: No hemorrhage, large hypodensity, or mass effect. Ventricles: No hydrocephalus. Bones/joints: Unremarkable. Soft tissues: Unremarkable. Sinuses: Unremarkable. Mastoid air cells: Clear. IMPRESSION: No acute hemorrhage, hydrocephalus, or mass effect. EXAM: CT Cervical Spine Without Intravenous Contrast CLINICAL HISTORY: ITS.REASON CT Reason: Pain TECHNIQUE: Axial computed tomography images of the cervical spine without intravenous contrast. CTDI is 17 mGy and DLP is 430 mGy-cm. This CT exam was performed using one or more of the following dose reduction techniques: automated exposure control, adjustment of the mA and/or kV according to patient size, and/or use of iterative reconstruction technique. COMPARISON: No relevant prior studies available. FINDINGS: Vertebrae: No acute fracture. Discs/spinal canal/neural foramina: No high grade spinal canal stenosis. Soft tissues: Unremarkable. Mild paraseptal emphysema in the upper lungs. IMPRESSION: No acute fracture or subluxation.
[2019-06-25] MEDS ORDERED: KETOROLAC 60 MG/2 ML VIAL IM STA (03:20)
[2019-06-25 03:48] VITALS: BP 124/85; PULSE 69
== END 2019-06-25 03:49 | disposition home or self-care (01) ==
LOC: EC 01:43
DX: R51 Headache (principal); Z87.891 Personal history of nicotine dependence; Z88.0 Allergy status to penicillin; Z86.14 Personal history of Methicillin resistant Staphylococcus aureus infection; Z53.9 Procedure and treatment not carried out, unspecified reason; W18.30XA Fall on same level, unspecified, initial encounter; W22.8XXA Striking against or struck by other objects, initial encounter; Y93.51 Activity, roller skating (inline) and skateboarding
CPT/HCPCS: 70450; 72125; 99284

== ENCOUNTER 2019-10-22 03:15 | Emergency (ER) | payer BC ==
[2019-10-22 03:21] VITALS: RESP 18; TEMP 97.9
--- NOTE | 2019-10-22 04:02 | XR ---
EXAMINATION TYPE: XR knee 4V LT DATE OF EXAM: 10/22/2019 COMPARISON: NONE HISTORY: Knee pain TECHNIQUE: 4 views FINDINGS: I see no knee joint fracture nor dislocation. Joint spaces are normal. There is spurring on the superior patella. There is no sign of joint effusion. IMPRESSION: Normal joint spaces. There is a small chip fracture of the large spur on the superior pat saritha. Is not clear if this is clinically significant..
--- NOTE | 2019-10-22 04:24 | ED ---
Lower Extremity Injury HPI - General Chief Complaint: Extremity Injury, Lower Stated Complaint: L Knee Pain Time Seen by Provider: 10/22/19 03:37 Source: patient Mode of arrival: ambulatory Limitations: no limitations - History of Present Illness Initial Comments: Zachary a pleasant 29-year-old gentleman who reports that yesterday he was sleeping basketball with friends when his knees collided with another person. Patient reports he felt initial pain, noticed some swelling. Throughout the night the patient, kept him from sleeping despite taking Motrin psychiatric the ER for further evaluation. Denies any other injuries or pain he is able to ambulate. - Related Data Home Medications Medication Instructions Recorded Confirmed Ibuprofen [Motrin] 200 mg PO Q6HR PRN 10/27/16 08/22/17 Previous Rx's Medication Instructions Recorded Ibuprofen [Motrin] 600 mg PO Q8HR PRN #30 tab 03/14/17 Naproxen 500 mg PO BID #20 tablet 08/01/17 Desloratadine/Pseudoephedrine 1 each PO BID #14 tbmp.12hr 07/04/18 [Clarinex-D 12 Hour Tablet] Levofloxacin [Levaquin] 750 mg PO DAILY #7 tab 07/04/18 Acetaminophen [Tylenol Extra 1,000 mg PO QID #20 tablet 05/09/19 Strength] Ibuprofen [Motrin] 800 mg PO TID #20 tab 05/09/19 Allergies Allergy/AdvReac Type Severity Reaction Status Date / Time Penicillins Allergy Unknown Verified 10/22/19 03:21 Review of Systems ROS Statement: Those systems with pertinent positive or pertinent negative responses have been documented in the HPI. ROS Other: All systems not noted in ROS Statement are negative. Past Medical History Past Medical History: No Reported History History of Any Multi-Drug Resistant Organisms: MRSA Date of last positivie culture/infection: 2011 MDRO Source:: right arm Past Surgical History: No Surgical Hx Reported Past Psychological History: No Psychological Hx Reported Smoking Status: Former smoker Past Alcohol Use History: None Reported Past Drug Use History: None Reported General Exam - General Exam Comments Initial Comments: Physical Exam GENERAL: Patient is well-developed and well-nourished. Patient is nontoxic and well-hydrated and is in no distress. HENT: Normocephalic, Atraumatic. EYES: PERRL, EOMI PULMONARY: Unlabored respirations. CARDIOVASCULAR: RRR Warm and well perfused extremities ABDOMEN: Non-distended SKIN: No rashes or bruising : Deferred NEUROLOGIC: Alert and oriented Normal speech Normal gait MUSCULOSKELETAL: Moving all extremities Swelling and bruising the left knee PSYCHIATRIC: No SI/HI Limitations: no limitations Course Vital Signs 10/22/19 03:19 Temperature 97.9 F Pulse Rate 74 Respiratory 18 Rate Blood Pressure 130/71 O2 Sat by Pulse 98 Oximetry Medical Decision Making - Medical Decision Making She was seen and evaluated history was obtained from the patient history significant for direct trauma to the anterior knee, x-ray confirms a chip fracture of a bony spur on the patella, the bony patella seems to be intact. I offer the patient knee immobilizer which he declined. Patient states he'll treat conservatively he just feels he can rest assured knowing that there is in fact an injury that's causing his pain. Disposition Clinical Impression: Fracture of patella Disposition: HOME SELF-CARE Condition: Stable Instructions (If sedation given, give patient instructions): Patellar Fracture (ED) Is patient prescribed a controlled substance at d/c from ED?: No Referrals: Max Murphy MD [Primary Care Provider] - 1-2 days
[2019-10-22 04:41] VITALS: BP 143/96; PULSE 81
== END 2019-10-22 04:33 | disposition home or self-care (01) ==
LOC: EC 03:15
DX: S82.002A Unspecified fracture of left patella, initial encounter for closed fracture (principal); Z87.891 Personal history of nicotine dependence; Z88.0 Allergy status to penicillin; Z86.14 Personal history of Methicillin resistant Staphylococcus aureus infection; W51.XXXA Accidental striking against or bumped into by another person, initial encounter; Y93.67 Activity, basketball; Z53.8 Procedure and treatment not carried out for other reasons
CPT/HCPCS: 99283

== ENCOUNTER → 2020-11-17 | Outpatient (CLI) | payer BC | END | disposition home or self-care (01) | LOC: LABWHC1 16:13 | PROVIDERS: ATTEND Internal Medicine | DX: Z20.822 Contact with and (suspected) exposure to COVID-19 (principal) | CPT/HCPCS: U0003; C9803; U0005 ==

== ENCOUNTER → 2022-06-23 | Emergency (ER) | payer OTHER ==
[~2022-06-23] MED LIST: BACITRACIN OINT 1 EACH PACKET TOPICAL ONE; DIPH,PERTUS(ACELL)TETVAC-LF 0.5 ML VIAL IM ONE; LIDOCAINE 1% INJ 10MG/ML (20 ML MDV) ONE
== END ==
LOC: EC 00:12
DX: S51.812A Laceration without foreign body of left forearm, initial encounter (principal); Z23 Encounter for immunization; W26.8XXA Contact with other sharp object(s), not elsewhere classified, initial encounter; Y99.0 Civilian activity done for income or pay
CPT/HCPCS: 90715; 99282; 90471; 12002; J2001

== ENCOUNTER 2025-04-03 05:29 | Emergency (ER) | payer BC ==
[2025-04-03 05:37] VITALS: RESP 18
[2025-04-03 06:26] LABS: Influenza A Not Detected (Not Detectd); Influenza B Not Detected (Not Detectd); RSV Not Detected (Not Detectd)
--- NOTE | 2025-04-03 07:03 | XR ---
EXAMINATION TYPE: XR chest 2V DATE OF EXAM: 04/03/2025 CLINICAL INDICATION: Male, 34 years old with history of cough, pain, TECHNIQUE: Frontal and lateral views of the chest are obtained. COMPARISON: Chest x-ray 2017 FINDINGS: There is no focal air space opacity, pleural effusion, or pneumothorax seen. The cardiac silhouette size is within normal limits. The osseous structures are intact. IMPRESSION: No acute cardiopulmonary process. [facility], , 04/03/2025 7:01 AM
--- NOTE | 2025-04-03 07:09 | ED ---
Chest Pain HPI - General Chief Complaint: Chest Pain Stated Complaint: Chest pain Time Seen by Provider: 04/03/25 06:00 Source: patient, RN notes reviewed Limitations: no limitations - History of Present Illness Initial Comments: 34-year-old male presents emergency department complaint cough and cold symptoms. Patient states not felt well for the last week. Patient states that he they are productive cough, pain in his ribs. Patient states that he was seen in urgent care and was given some Tessalon Perles. Patient states that has not helped he continues to have worsening cough, sinus congestion. Denies palpitations denies any abdominal pain no nausea vomiting no other complaints. - Related Data Home Medications Medication Instructions Recorded Confirmed Ibuprofen [Motrin] 200 mg PO Q6HR PRN 10/27/16 08/22/17 Previous Rx's Medication Instructions Recorded Ibuprofen [Motrin] 600 mg PO Q8HR PRN #30 tab 03/14/17 Naproxen 500 mg PO BID #20 tablet 08/01/17 Desloratadine/Pseudoephedrine 1 each PO BID #14 tbmp.12hr 07/04/18 [Clarinex-D 12 Hour Tablet] levoFLOXacin [Levaquin] 750 mg PO DAILY #7 tab 07/04/18 Acetaminophen [Tylenol Extra 1,000 mg PO QID #20 tablet 05/09/19 Strength] Ibuprofen [Motrin] 800 mg PO TID #20 tab 05/09/19 Azithromycin [Zithromax Z Pack] 0 tab PO DIRECTED #6 tab 04/03/25 predniSONE 50 mg PO DAILY #5 tab 04/03/25 Allergies Allergy/AdvReac Type Severity Reaction Status Date / Time Penicillins Allergy Unknown Verified 04/03/25 05:34 Review of Systems ROS Statement: Those systems with pertinent positive or pertinent negative responses have been documented in the HPI. ROS Other: All systems not noted in ROS Statement are negative. EKG Findings - EKG Comments: EKG Findings:: performed at 6: 41 sinus rhythm with early repull rate of 78 MA 203 QRS 92 QT/QTc 362/396 - EKG Results: EKG: interpreted by [facility] Past Medical History Past Medical History: No Reported History History of Any Multi-Drug Resistant Organisms: MRSA Date of last positivie culture/infection: 2011 MDRO Source:: right arm Past Surgical History: No Surgical Hx Reported Past Psychological History: No Psychological Hx Reported Smoking Status: Current every day smoker, Vaper Past Alcohol Use History: Rare Past Drug Use History: None Reported General Exam Limitations: no limitations General appearance: alert, in no apparent distress Head exam: Present: atraumatic, normocephalic, normal inspection Eye exam: Present: normal appearance, PERRL, EOMI. Absent: scleral icterus, conjunctival injection, periorbital swelling ENT exam: Present: normal exam, normal oropharynx, mucous membranes moist Neck exam: Present: normal inspection, full ROM. Absent: tenderness, meningismus, lymphadenopathy Respiratory exam: Present: rhonchi. Absent: normal lung sounds bilaterally, respiratory distress, wheezes, rales, stridor Cardiovascular Exam: Present: regular rate, normal rhythm, normal heart sounds. Absent: systolic murmur, diastolic murmur, rubs, gallop, clicks GI/Abdominal exam: Present: soft, normal bowel sounds. Absent: distended, tenderness, guarding, rebound, rigid Course Vital Signs 04/03/25 05:34 Temperature 98.0 F Pulse Rate 89 Respiratory 18 Rate Blood Pressure 142/88 O2 Sat by Pulse 97 Oximetry Chest Pain MDM - MDM Was pt. sent in by a medical professional or institution (, PA, AIRLINE RESERVATION AGENT, urgent care, hospital, or long-term...) When possible be specific @ -No Did you speak to anyone other than the patient for history (EMS, parent, family, police, friend...)? What history was obtained from this source @ -No Did you review nursing and triage notes (agree or disagree)? Why? @ -I reviewed and agree with nursing and triage notes Were old charts reviewed (outside hosp., previous admission, EMS record, old EKG, old radiological studies, urgent care reports/EKG's, long-term records)? Report findings @ -No old charts were reviewed Differential Diagnosis (chest pain, altered mental status, abdominal pain women, abdominal pain men, vaginal bleeding, weakness, fever, dyspnea, syncope, headache, dizziness, GI bleed, back pain, seizure, CVA, palpatations, mental health, musculoskeletal)? @ -COVID 19, RSV, influenza, pneumonia, acute bronchitis, URI, this list is not all inclusive EKG interpreted by me (3pts min.). @ -As above X-rays interpreted by me (1pt min.). @ -[X-ray shows no acute cardiopulmonary process. CT interpreted by me (1pt min.). @ -None done U/S interpreted by me (1pt. min.). @ -None done What testing was considered but not performed or refused? (CT, X-rays, U/S, labs)? Why? @ -None What meds were considered but not given or refused? Why? @ -None Did you discuss the management of the patient with other professionals (professionals i.e. , PA, AIRLINE RESERVATION AGENT, lab, RT, psych nurse, social worker school, automatic bandsaw tender, teacher, credit products officer, machine adjuster leader case trim)? Give summary @ -No Was smoking cessation discussed for >3mins.? @ -No Was critical care preformed (if so, how long)? @ -No Were there social determinants of health that impacted care today? How? (Homelessness, low income, unemployed, alcoholism, drug addiction, transportation, low edu. Level, literacy, decrease access to med. care, nursing home, rehab)? @ -No Was there de-escalation of care discussed even if they declined (Discuss DNR or withdrawal of care, Hospice)? DNR status @ -No What co-morbidities impacted this encounter? (DM, HTN, Smoking, COPD, CAD, Cancer, CVA, ARF, Chemo, Hep., AIDS, mental health diagnosis, sleep apnea, morbid obesity)? @ -None Was patient admitted / discharged? Hospital course, mention meds given and route, prescriptions, significant lab abnormalities, going to OR and other pertinent info. @ -Charge patient has acute tracheobronchitis, chest wall pain patient we discharged in stable condition return parameters cussed. Undiagnosed new problem with uncertain prognosis? @ -No Drug Therapy requiring intensive monitoring for toxicity (Heparin, Nitro, Insulin, Cardizem)? @ -No Were any procedures done? @ -No Diagnosis/symptom? @ -Acute tracheobronchitis chest wall pain Acute, or Chronic, or Acute on Chronic? @ -Acute Uncomplicated (without systemic symptoms) or Complicated (systemic symptoms)? @ -Uncomplicated Side effects of treatment? @ -No Exacerbation, Progression, or Severe Exacerbation? @ -No Poses a threat to life or bodily function? How? (Chest pain, [place], [place], pneumonia, PE, COPD, DKA, ARF, appy, cholecystitis, CVA, Diverticulitis, Homicidal, Suicidal, threat to staff... and all critical care pts) @ -No Disposition Clinical Impression: Tracheobronchitis, Chest wall pain Disposition: HOME SELF-CARE Condition: Stable Instructions (If sedation given, give patient instructions): Chest Pain (ED) Additional Instructions: Please return to the Emergency Department if symptoms worsen or any other concerns. Prescriptions: predniSONE 50 mg PO DAILY #5 tab Azithromycin [Zithromax Z Pack] 0 tab PO DIRECTED #6 tab Is patient prescribed a controlled substance at d/c from ED?: No Referrals: None,Stated [Primary Care Provider] - 1-2 days Time of Disposition: 08:12
[2025-04-03 09:06] VITALS: BP 123/70; PULSE 74; TEMP 97.9
== END 2025-04-03 09:01 | disposition home or self-care (01) ==
LOC: EC 05:29
DX: R07.89 Other chest pain (principal); J40 Bronchitis, not specified as acute or chronic; F17.290 Nicotine dependence, other tobacco product, uncomplicated; Z88.0 Allergy status to penicillin
CPT/HCPCS: 71046; 87636; 93005; 99285